=== PATIENT | female | born 1940 | race Caucasian/White ===

== ENCOUNTER 2020-09-30 09:13 | Outpatient (CLI) | payer MEDICARE, OTHER, SELFPAY ==
[2020-09-30 09:31] VITALS: BMI 29.2
--- NOTE | 2020-09-30 10:14 | NMCV_ITS ---
NM walt perf SPECT r/s* [id number] Patito Morfin Age: 80 Gender: F : 1940 Exam Date: 09/30/2020 11:06 Ordering Phys: Hemal Araya M.D ([email or web address]) Technologist: LAURENCE Shin Exam Location: [facility] Indications: SHORTNESS OF BREATH STRESS TEST Please see separate stress test report in [facility] for full findings IMAGE PROTOCOL Rest/Stress 1 Lexiscan Day Radiopharmaceutical Dose (mCi) Administration Site Administered by Rest: Tc-99m 10.8 IV LAURENCE Vega Sestamibi Stress:Tc-99m 32.9 IV LAURENCE Vega Sestamibi Rest: 30-Sep-2020 60 Discovery 630 Stress: 30-Sep-2020 30 Discovery 630 0.4mg Lexiscan. Images obtained in supine and prone position. SPECT RESULTS Technical Quality: Excellent Raw Data Analysis: Normal Image Corrections: No attenuation or motion correction applied Summed Stress Score: 0 Summed Rest Score: 0 Summed Difference Score: 0 PERFUSION FINDINGS There is a small in size mostly fixed, anterior wall perfusion defect. It likely represents attenuation artifact however small prior infarct can not be ruled out. No evidence of ischemia is seen FUNCTIONAL RESULTS (calculated via Gated SPECT) Stress Image LV EF (%): 81 Stress EDV (mL):84 TID: 0.92 Stress ESV (mL):16 FUNCTIONAL FINDINGS: There is normal left ventricular systolic function. IMPRESSIONS 1. Small sized perfusion abnormality is seen in the anterior wall. This is consistent with attenuation artifact vs low probability of small prior infarct. No evidence of ischemia is noted 2. LV systolic function is normal Hemal Araya MD (Electronically Signed) Final Date: 03 October 2020 09:03 S
--- NOTE | 2020-09-30 10:14 | ECG_ITS ---
[facility] Test Date: 2020-09-30 Pat Name: Patito Morfin Department: Room: Gender: Female Check Airman: : 1940 Requested By: Hemal Araya Order Number: [id number] Jeni MD: Hemal Araya M.D. Interpretive Statements NAME OF STUDY: LEXISCAN SESTAMIBI STRESS TEST INDICATION: [Shortness of Breath, ] Procedure: At the baseline, the blood pressure was 129/71 mmHg with a heart rate of 60 bpm. The electrocardiogram showed normal sinus rhythm, normal axis with normal ST and T's. The Lexiscan was infused over a period of 20 seconds. A total of 0.4 mg of Lexiscan was infused. The stress phase was continued for a total of 5 minutes. Heart rate was at the end of stress phase was 74 bpm and a blood pressure of 124/66 mmHg. The EKG at the peak infusion revealed since normal sinus rhythm with no significant ST-T wave changes. Sestamibi was injected 20 seconds after the Lexiscan infusion. Blood pressure at the end of recovery phase was 126/64 mmHg with a heart rate of 73 bpm. Conclusion: 1. Normal EKG response to Lexiscan infusion 2. No Lexiscan induced chest pain or cardiac arrhythmia. 3. Normal blood pressure and heart rate response. 4. Sestamibi/sestamibi perfusion scan pending; see separate report. Electronically Signed On 10-09-2020 13:36:04 CDT by Hemal Araya M.D. [id number]
[2020-09-30] MEDS: regadenoson 0.4 Mg/5 ml Syringe IVP (11:58)
[2020-09-30 12:00] VITALS: BP 126/64; PULSE 75
--- NOTE | 2020-09-30 14:15 | USCV_ITS ---
Patito Morfin Age: 80 Gender: F : 1940 Exam Date: 09/30/2020 09:58 Ordering Phys: Hemal Araya M.D ([email or web address]) Technologist: Exam Location: [facility] [place] Indication: CHEST PAIN BP: 120 / 70 HR: 64 Rhythm: Sinus Technical Quality: Adequate MEASUREMENTS (Male / Female) Normal Values 2D ECHO LV Diastolic Diameter PLAX 3.5 cm 4.2 - 5.9 / 3.9 - 5.3 cm LV Systolic Diameter PLAX 2.3 cm IVS Diastolic Thickness 0.8 cm 0.6 - 1.0 / 0.6 - 0.9 cm IVS Systolic Thickness 1.6 cm LVPW Diastolic Thickness 1.0 cm 0.6 - 1.0 / 0.6 - 0.9 cm LVPW Systolic Thickness 1.4 cm LVOT Diameter 2.0 cm LV Ejection Fraction 2D Teich 62.4 % LV Ejection Fraction MOD 2C 70.2 % LV Ejection Fraction 2C AL 70.2 % LA Diameter 2.9 cm LA Width 3.4 cm LA Height 4.8 cm RA Width 3.0 cm RA Height 3.8 cm DOPPLER AV Peak Velocity 158.0 cm/s LVOT Peak Velocity 90.0 cm/s AV Area Cont Eq vti 2.2 cm squared AV Area Cont Eq pk 1.8 cm squared MV Area PHT 5.0 cm squared Mitral E to A Ratio 1.3 MV E' Velocity 58.5 cm/s Mitral E to MV E' Ratio 10.6 Mitral E to LV E' Lateral Ratio 8.2 Mitral E to LV E' Septal Ratio 15.3 TR Peak Velocity 222.7 cm/s TR Peak Gradient 19.8 mmHg TV Peak E Velocity 73.0 cm/s Right Atrial Pressure 3.0 mmHg Pulmonary Artery Systolic Pressu 22.8 mmHg FINDINGS Left Ventricle Normal left ventricular size. LV systolic function is normal with EF of 55-60%. No regional wall motion abnormalities. Normal diastolic filling pattern. Right Ventricle The right ventricle is normal in size and function. Right Atrium The right atrium is normal in size. Left Atrium The left atrium is normal in size. Mitral Valve Structurally normal mitral valve without significant stenosis or prolapse. There is trace mitral regurgitation. Aortic Valve Structurally normal aortic valve without significant sclerosis or stenosis. There is trace aortic regurgitation. Tricuspid Valve Structurally normal tricuspid valve without significant stenosis or regurgitation. Insufficient TR jet to calculate RVSP Pulmonic Valve Structurally normal pulmonic valve without significant stenosis. There is trace pulmonic regurgitation. Pericardium Normal pericardium without effusion. Aorta Normal ascending aorta dimension. CONCLUSIONS LV systolic function is normal with EF of 55-60% Diastolic function is normal Trace mitral regurgitation. Trace pulmonic and aortic regurgitation Compared to prior echocardiogram from 2019, no significant changes are noted Hemal Araya MD (Electronically Signed) Final Date: 07 October 2020 11:53 S
== END 2020-09-30 09:14 | disposition home or self-care (01) ==
LOC: CDL 09:14
PROVIDERS: PCP Radiology Neuroradiology; Visit Provider Internal Medicine
DX: R06.02 Shortness of breath (principal); R07.9 Chest pain, unspecified
CPT/HCPCS: 78452; 93017; 93306; A9500; J2785

== ENCOUNTER → 2021-07-23 13:27 | Outpatient (BNVA) | payer MEDICARE, OTHER, SELFPAY | PROVIDERS: PCP Radiology Neuroradiology; Visit Provider Internal Medicine | DX: I10 Essential (primary) hypertension (principal); R06.00 Dyspnea, unspecified; E78.00 Pure hypercholesterolemia, unspecified | CPT/HCPCS: 99213; 99214 ==

== ENCOUNTER → 2021-12-24 14:55 | Outpatient (BNVA) | payer MEDICARE, OTHER, SELFPAY | PROVIDERS: PCP Radiology Neuroradiology; Visit Provider Orthopaedic Surgery | DX: M17.11 Unilateral primary osteoarthritis, right knee (principal) | CPT/HCPCS: 20610; 73560; 73565; 80503; 89050; 99203; J0702; J3490 ==

== ENCOUNTER → 2022-01-14 09:38 | Outpatient (BNVA) | payer MEDICARE, OTHER, SELFPAY | PROVIDERS: PCP Radiology Neuroradiology; Visit Provider Orthopaedic Surgery | DX: M17.11 Unilateral primary osteoarthritis, right knee (principal) | CPT/HCPCS: 99213 ==

== ENCOUNTER → 2022-03-24 13:14 | Outpatient (BNVA) | payer MEDICARE, OTHER, SELFPAY | PROVIDERS: PCP Radiology Neuroradiology; Visit Provider Orthopaedic Surgery | DX: M25.561 Pain in right knee (principal) | CPT/HCPCS: 99213 ==

== ENCOUNTER 2022-04-09 12:52 | Outpatient (CLI) | payer MEDICARE, OTHER, SELFPAY | END 2022-04-09 12:53 | disposition home or self-care (01) | LOC: RT 12:52 | PROVIDERS: PCP Nurse Practitioner Family; Visit Provider Internal Medicine | DX: R06.00 Dyspnea, unspecified (principal) | CPT/HCPCS: 94010; 94726; 94729 ==

== ENCOUNTER → 2022-04-23 15:21 | Outpatient (BNVA) | payer MEDICARE, OTHER, SELFPAY | PROVIDERS: PCP Nurse Practitioner Family; Visit Provider Internal Medicine | DX: I10 Essential (primary) hypertension (principal); E78.00 Pure hypercholesterolemia, unspecified; R06.00 Dyspnea, unspecified | CPT/HCPCS: 99214 ==

== ENCOUNTER 2022-05-11 10:35 | Outpatient (CLI) | payer MEDICARE, OTHER, SELFPAY ==
--- NOTE | 2022-05-11 11:00 | MR_ITS ---
WS: [id number] MRI RIGHT KNEE NONCONTRAST TECHNIQUE: Axial PD, coronal PD fat sat, coronal PD, sagittal PD, and sagittal PD fat-sat images obta ined. CLINICAL INFORMATION: M17.11 - Unilateral primary osteoarthritis, right knee COMPARISON: None. FINDINGS: Lobulated popliteal cyst measuring 1.4 x 1.4 x 5.1 cm AP by transverse by craniocaudal. Distal minnie ceps and patella tendons are intact. Hypertrophic patella. Prepatellar and infrapatellar soft tissue edema. Small suprapatellar effusion. Moderate chondromalacia patella. Medial and lateral patellar ret inaculum are intact.Normal ACL and PCL. Medial and lateral collateral ligaments are intact. Moderate chondromalacia involving the medial and lateral joint compartments. Horizontal tear involving the posterior horn medial meniscus extending to the articular surface. This extends the articular surface at the periphery and the meniscal root. Pe ripheral extrusion medial meniscus with advanced degenerative narrowing medial joint compartment with grade III chondromalacia. MR/MR knee RT wo con* [id number] IMPRESSION: 1. Lobulated popliteal cyst measuring 1.4 x 1.4 x 5.1 cm AP by transverse by c raniocaudal. 2. ACL and PCL are intact. 3. Advanced degenerative narrowing medial joint compartment with horizontal te ar posterior horn medial meniscus with chronic thinning and peripheral extrusio n. Grade III chondromalacia. 4. Small suprapatellar effusion. 5. Hypertrophic patella with grade III chondromalacia. Outbridge grading: grade III: partial-thickness cartilage loss with focal ulcer ation
== END 2022-05-11 10:36 | disposition home or self-care (01) ==
PROVIDERS: PCP Nurse Practitioner Family; Visit Provider Orthopaedic Surgery
DX: M17.11 Unilateral primary osteoarthritis, right knee (principal)
CPT/HCPCS: 73721

== ENCOUNTER → 2022-06-17 09:30 | Outpatient (BNVA) | payer MEDICARE, OTHER, SELFPAY | PROVIDERS: PCP Nurse Practitioner Family; Visit Provider Orthopaedic Surgery | DX: M17.11 Unilateral primary osteoarthritis, right knee (principal) | CPT/HCPCS: 99213 ==

== ENCOUNTER 2022-06-27 09:39 | Outpatient (CLI) | payer MEDICARE, OTHER, SELFPAY ==
--- NOTE | 2022-06-27 13:15 | CT_ITS ---
WS: [id number] CT chest wo con [id number] HISTORY: Lung Disease, short of breath with exertion. TECHNIQUE: Axial imaging performed through the thorax. Coronal and sagittal reformats are submitted. All CT scans at [facility] use at least one of these dose optimization techniques: automated exposure control; mA and/or kV adjustment per patient size (includes targeted exams where dose is mat ched to clinical indication); or iterative reconstruction. CONTRAST: None DLP: 185.71 mGy.cm COMPARISON: CT neck 10/24/2010 Lungs and central airway: Mild pulmonary hyperexpansion. Hazy groundglass attenuation at the lung bas es bilaterally and also extension into the RIGHT middle lobe and minimally into the lingula. There is no associated mass. No nodule. Pleura: Normal. No pleural effusion. Heart and pericardium: Normal size heart with no pericardial effusion. Mediastinum and bhakti: No adenopathy identified. Hilar regions are not well visualized without IV cont rast. Cannot exclude hilar lymphadenopathy. Vessels: Mild atherosclerosis aorta. No aneurysm. Normal size pulmonary artery. Chest wall and lower neck: Enlarged multinodular thyroid. RIGHT lower lobe thyroid nodule measures 2. 5 x 2.9 cm. The LEFT lobe is enlarged also extending substernal. There is a midline thyroid nodule me asuring 2.3 x 3.1 cm which contacts the trachea. Upper abdomen: Small hiatal hernia. 10 mm low-attenuation mass in the LEFT lobe of the liver is proba john a cyst. Osseous structures: Moderate thoracic spondylosis. CT/CT chest wo con [id number] IMPRESSION: 1. Mild bilateral lower lobe groundglass attenuation with a smaller amount of groundglass in the lingula and RIGHT middle lobe. Differential includes edema, small vessel disease and hypersensitivity pneumonia. 2. No adenopathy. 3. Multinodular goiter extends substernal. Similar findings were described on neck CT of 10/24/2010. 4. No adenopathy identified.
== END 2022-06-27 09:40 | disposition home or self-care (01) ==
PROVIDERS: PCP Nurse Practitioner Family; Visit Provider Internal Medicine Pulmonary Disease
DX: J98.4 Other disorders of lung (principal); M25.641 Stiffness of right hand, not elsewhere classified; M25.642 Stiffness of left hand, not elsewhere classified; E04.2 Nontoxic multinodular goiter
CPT/HCPCS: 71250

== ENCOUNTER 2022-07-22 09:41 | Outpatient (CLI) | payer MEDICARE, OTHER, SELFPAY | END 2022-07-22 09:42 | disposition home or self-care (01) | LOC: RT 09:43 | PROVIDERS: PCP Nurse Practitioner Family; Visit Provider Internal Medicine | DX: R06.00 Dyspnea, unspecified (principal) | CPT/HCPCS: 36415; 85651; 86038; 86140; 86200; 94618; 99204 ==

== ENCOUNTER → 2022-09-24 08:11 | Outpatient (BNVA) | payer MEDICARE, OTHER, SELFPAY | PROVIDERS: PCP Nurse Practitioner Family; Visit Provider Internal Medicine Pulmonary Disease | DX: J98.4 Other disorders of lung (principal); R06.00 Dyspnea, unspecified; M25.641 Stiffness of right hand, not elsewhere classified; M25.642 Stiffness of left hand, not elsewhere classified; G47.33 Obstructive sleep apnea (adult) (pediatric); E04.2 Nontoxic multinodular goiter | CPT/HCPCS: 36415; 86331; 86606; 86609; 99214 ==

== ENCOUNTER → 2022-12-22 13:23 | Outpatient (BNVA) | payer MEDICARE, OTHER, SELFPAY | PROVIDERS: PCP Nurse Practitioner Family; Referring Provider Nurse Practitioner Family; Visit Provider Specialist | DX: F03.90 Unspecified dementia, unspecified severity, without behavioral disturbance, psychotic disturbance, mood disturbance, and anxiety (principal); G31.84 Mild cognitive impairment of uncertain or unknown etiology | CPT/HCPCS: 99205 ==

== ENCOUNTER → 2023-02-22 14:57 | Outpatient (BNVA) | payer MEDICARE, OTHER, SELFPAY | PROVIDERS: PCP Nurse Practitioner Family; Visit Provider Specialist | DX: M25.521 Pain in right elbow (principal); M79.641 Pain in right hand; M19.041 Primary osteoarthritis, right hand | CPT/HCPCS: 73080; 73120; 99204 ==

== ENCOUNTER → 2023-04-06 11:57 | Outpatient (BNVA) | payer MEDICARE, OTHER, SELFPAY | PROVIDERS: PCP Nurse Practitioner Family; Visit Provider Specialist | DX: G56.03 Carpal tunnel syndrome, bilateral upper limbs (principal); M25.641 Stiffness of right hand, not elsewhere classified; M25.642 Stiffness of left hand, not elsewhere classified; G31.84 Mild cognitive impairment of uncertain or unknown etiology | CPT/HCPCS: 99214 ==

== ENCOUNTER → 2023-04-08 11:48 | Outpatient (BNVA) | payer MEDICARE, OTHER, SELFPAY | PROVIDERS: PCP Nurse Practitioner Family; Visit Provider Specialist | DX: G56.03 Carpal tunnel syndrome, bilateral upper limbs (principal) | CPT/HCPCS: 95911 ==

== ENCOUNTER → 2023-04-22 12:40 | Outpatient (BNVA) | payer MEDICARE, OTHER, SELFPAY | PROVIDERS: PCP Nurse Practitioner Family; Visit Provider Internal Medicine | DX: I10 Essential (primary) hypertension (principal); R01.1 Cardiac murmur, unspecified; E78.00 Pure hypercholesterolemia, unspecified; R06.00 Dyspnea, unspecified | CPT/HCPCS: 99214 ==

== ENCOUNTER → 2023-04-28 16:33 | Outpatient (BNVA) | payer MEDICARE, OTHER, SELFPAY | PROVIDERS: PCP Nurse Practitioner Family; Visit Provider Specialist | DX: G56.03 Carpal tunnel syndrome, bilateral upper limbs (principal); Z01.818 Encounter for other preprocedural examination | CPT/HCPCS: 36415; 80053; 81001; 85025; 99214 ==

== ENCOUNTER 2023-04-29 08:26 | Outpatient (CLI) | payer MEDICARE, OTHER, SELFPAY ==
--- NOTE | 2023-04-29 08:45 | USCV_ITS ---
Patito Morfin Age: 82 Gender: F : 1940 Exam Date: 04/29/2023 08:49 Ordering Phys: Hemal Araya M.D ([email or web address]) Technologist: Kayla Arango Exam Location: [facility] [place] Indication: murmur BP: 138 / 70 HR: 0 Rhythm: Sinus Technical Quality: Good MEASUREMENTS (Male / Female) Normal Values 2D ECHO LV Diastolic Diameter PLAX 5.1 cm 4.2 - 5.9 / 3.9 - 5.3 cm IVS Diastolic Thickness 1.0 cm 0.6 - 1.0 / 0.6 - 0.9 cm IVS Systolic Thickness 1.7 cm LVPW Diastolic Thickness 0.5 cm 0.6 - 1.0 / 0.6 - 0.9 cm LVPW Systolic Thickness 0.8 cm LVOT Diameter 2.0 cm LV Ejection Fraction 2D Teich 54.7 % LV Ejection Fraction MOD 2C 58.1 % Aorta at Sinotubular Diameter 3.0 cm IVC Diameter 1.5 cm M-MODE LA Ao Ratio MM 0.8 AV Cusp Separation MM 1.4 cm DOPPLER AV Peak Velocity 194.0 cm/s LVOT Peak Velocity 127.0 cm/s AV Area Cont Eq vti 2.1 cm squared AV Area Cont Eq pk 2.0 cm squared MV Area PHT 4.2 cm squared Mitral E to A Ratio 1.0 TV Peak Velocity 244.0 cm/s TR Peak Velocity 254.0 cm/s TR Peak Gradient 25.8 mmHg PV Peak Velocity 117.0 cm/s FINDINGS Left Ventricle Ventricle is normal size. LV systolic function is normal with EF of 55 to 60%. No regional wall motion abnormalities are seen. Right Ventricle Normal in size and function Right Atrium Normal in size Left Atrium Normal in size Mitral Valve Mild mitral annular calcification seen. Trace mitral regurgitation. Aortic Valve Structurally normal aortic valve. No significant stenosis or regurgitation seen. Tricuspid Valve Mild tricuspid regurgitation. Insufficient TR jet to calculate RVSP. Pulmonic Valve Mild pulmonic regurgitation. Pericardium Normal Aorta Normal in size IVC Appears to be normal CONCLUSIONS LV systolic function is normal with EF of 55 to 60%. Trace mitral regurgitation. Mild tricuspid regurgitation Mild pulmonic regurgitation Compared to prior echcoardiogram from 2020, no significant changes are seen Hemal Araya MD (Electronically Signed) Final Date: 08 May 2023 11:30 S
== END 2023-04-29 08:27 | disposition home or self-care (01) ==
LOC: RAD 08:27
PROVIDERS: PCP Nurse Practitioner Family; Visit Provider Internal Medicine
DX: I08.8 Other rheumatic multiple valve diseases (principal)
CPT/HCPCS: 93306

== ENCOUNTER → 2023-05-04 12:53 | Outpatient (BNVA) | payer MEDICARE, OTHER, SELFPAY | PROVIDERS: PCP Nurse Practitioner Family; Visit Provider Internal Medicine Pulmonary Disease | DX: R06.00 Dyspnea, unspecified (principal); M25.641 Stiffness of right hand, not elsewhere classified; M25.642 Stiffness of left hand, not elsewhere classified; J98.4 Other disorders of lung; E04.2 Nontoxic multinodular goiter | CPT/HCPCS: 99214 ==

== ENCOUNTER → 2023-05-11 14:33 | Outpatient (BNVA) | payer MEDICARE, OTHER, SELFPAY | PROVIDERS: PCP Nurse Practitioner Family; Visit Provider Family Medicine | DX: Z01.818 Encounter for other preprocedural examination (principal) | CPT/HCPCS: 81003 ==

== ENCOUNTER 2023-06-03 05:26 | Day surgery (SDC) | payer MEDICARE, OTHER, SELFPAY ==
[2023-06-03] VITALS (10 sets, daily range): BP systolic 112–148; BP diastolic 52–71; PULSE 54–64; RESP 12–16; TEMP 36.2–36.4; O2SAT 92–100; BMI 27.6
[2023-06-03] MEDS: sodium chloride 0.9% 1,000 ML 30 ML IV (06:28)
[2023-06-03] MEDS: acetaminophen 1,000 MG/100 ML PIGGYBACK 400 MG IV (06:29)
[2023-06-03] MEDS: CELEcoxib 200 mg Capsule 400 MG PO (06:29)
[2023-06-03] MEDS: gabapentin 300 mg Capsule PO (06:29)
--- NOTE | 2023-06-03 06:45 | ANES.PREANE2 ---
Pre-Anesthetic Assessment Height/Weight: Height 1.62 m Weight 72.575 kg Temp Pulse Resp BP Pulse Ox O2 Del Method 97.4 F L 54 L 16 123/53 96 Room Air 06/03/23 06:08 06/03/23 06:08 06/03/23 06:08 06/03/23 06:08 06/03/23 06:08 06/03/23 06:09 Operation Date: 06/03/23 07:00 Proposed Procedures p Carpal Tunnel Release(Right) - Agnieszka Rai MD Familial anesthetic complications: None Was Beta Niraj taken within 24 hours: N/A Was Clonidine taken within 24 hours: N/A Last intake: Intake Last Liquid Date 06/02/23 Last Liquid Time 19:00 Last Solid Date 06/02/23 Last Solid Time 19:00 Social No alcohol and No tobacco Exam alert, oriented x 3, clear to auscultation bilaterally and regular rate & rhythm Airway Mallampati: Class II Dentition: false Pulmonary Exertional Dyspnea and Sleep Apnea CV/HEM Hypertension restrictive lung disease Anesthetic Plan ASA status: 3 Anesthesia: General Risk of > 500 ml blood loss (7ml/kg in children): No Medications/Allergies Home Medications Medication Instructions Recorded Confirmed Last Taken Type calcium citrate 200 mg (950 mg) 200 mg PO DAILY 08/28/20 06/02/23 06/02/23 History tablet clopidogrel 75 mg tablet (Plavix) 75 mg PO DAILY 08/28/20 06/02/23 05/28/23 History multivitamin 1 tab PO DAILY 08/28/20 06/02/23 06/02/23 History valsartan 160 1 tab PO DAILY 08/28/20 06/02/23 06/01/23 History mg-hydrochlorothiazide 25 mg tablet (Diovan HCT) amlodipine 5 mg tablet 5 mg PO DAILY #90 tabs 08/12/21 06/03/23 06/03/23 Rx celecoxib 200 mg capsule (Celebrex) 200 mg PO DAILY 06/24/22 06/02/23 06/02/23 History cilostazol 50 mg tablet 50 mg PO BID 06/24/22 06/02/23 Unknown History hydrocodone 5 mg-acetaminophen 325 1 tab PO Q4H PRN Pain 04/22/23 06/02/23 Unknown History mg tablet trazodone 50 mg tablet 100 mg PO DAILY 05/11/23 06/02/23 06/02/23 History galantamine 4 mg tablet 4 mg PO BID #60 tabs 05/26/23 06/02/23 Unknown Rx Allergies Allergy/AdvReac Type Severity Reaction Status Date / Time prochlorperazine Allergy Unknown Unknown Verified 06/02/23 12:11 [From Compazine] Current Medications Generic Name Dose Route Start Last Admin Trade Name Freq PRN Reason Stop Dose Admin Sodium Chloride 1,000 mls @ 30 mls/hr 06/03/23 06:00 06/03/23 06:28 Sodium Chloride 0.9% IV 06/04/23 05:59 30 mls/hr .Q24H SAHARA Administration PFSH Anesthesia Medical History Hypercholesterolemia Hypertension Surgical History History of appendectomy H/O total hysterectomy Family History Other Hypertension Social History Smoking and tobacco/nicotine status: never used tobacco/nicotine Alcohol intake: never Data Anesthesia Cardiac Studies: Echocardiogram 04/29/23 Echocardiogram Ultrasound 09/30/20 Sestamibi Stress Test (Cardiology) 09/30/20
--- NOTE | 2023-06-03 06:55 | P.HPUD_ITS ---
Surgery/Procedure H&P Update DATE OF PROCEDURE: June 03, 2023 DATE H&P PERFORMED: 05/11/23 H&P UPDATE INFORMATION: I have reviewed H&P completed within last 30 days, I have examined patient prior to procedure, No changes to prior documentation and H&P is in [facility] EMR on date indicated PLANNED PROCEDURE: Operation Date: 06/03/23 07:00 Proposed Procedures p Carpal Tunnel Release(Right) - Agnieszka Rai MD Related Problem List Diagnoses (1) Carpal tunnel syndrome on right:
[2023-06-03] MEDS: ceFAZolin 2,000 MG in sodium chloride 0.9% (plus) 50 ML 100 MG IV (07:10)
[2023-06-03] MEDS: BUPivacaine 0.5% INJ 30 mL XX (07:36)
--- NOTE | 2023-06-03 08:00 | PM.OP ---
Operative Report Date of procedure: June 03, 2023 Pre-op diagnosis: Right carpal tunnel syndrome Post-op diagnosis: Right carpal tunnel syndrome Post-op findings: Significant compression across carpal canal with purplish discoloration of the median nerve Procedure done: Right carpal tunnel release Specimens removed/disposition: None Surgeon: Agnieszka Ria MD Pharmaceutical Service Representative: None Anesthesia: General (Per LMA, ASA 3) Estimated blood loss (mL): 5 Tourniquet time (min): 19 (At 250 mmHg) IV fluids (mL): 5 Urine output (mL): 0 (No Sahni) Complications: None Findings: Consistent with significant carpal tunnel syndrome Condition: stable Disposition: PACU Brief History: This 82-year-old woman presented to the office complaining of symptoms consistent with carpal tunnel syndrome. She had a nerve conduction study in March which demonstrated severe bilateral carpal tunnel syndrome. Risks and complications of surgery were discussed with the patient in the office. Consents were signed and questions were answered. The patient wished to proceed with right carpal tunnel syndrome followed by left after she recovers. Procedure: The patient was brought to the operating theater. She had a general anesthesia per LMA, ASA 3. The tourniquet was elevated to 250 mmHg for a total tourniquet time of 19 minutes. The patient was also given Ancef 2 g preoperatively. The arm was then prepped and draped with DuraPrep in usual fashion with the arm draped free. A surgical pause was performed. At the time, the surgical pause, we confirmed the site and side of surgery. We also confirmed the patient's identity, appropriate and timely administration of preoperative antibiotics and preoperative surgical markings. An incision was then made along the thenar crease. The incision crossed the wrist joint in a curvilinear fashion. Dissection continued through skin and soft tissues using a scalpel. The palmaris longus was identified along with the transverse carpal ligament. Each of these was released carefully to avoid injury to the median nerve. We were able to dissect gently into the carpal canal which was noted to be quite tight with significant compression across the median nerve. The nerve was visualized and was an hourglass shape with purplish discoloration. The canal was subsequently palpated to assure there was no bony encroachment upon the canal. There was a quite thickened fibrous tissue within the canal, and this was opened longitudinally as well. The canal was then palpated distally and proximally to assure that my small finger was passed easily without impingement. Finding this to be so, attention was directed to closure. The wound was irrigated with ropivacaine plain. It was then closed with 3 oh nylon in an interrupted mattress fashion. Sterile dressing was then placed consisting of Dermabond, OpSite, fluffed fluffs, sterile soft roll, and an Andrez wrap. The tourniquet was released after 19 minutes. There were no complications. There were no specimens. The procedure was well tolerated. Plan is the patient will be discharged home. Related Problem List Diagnoses (1) Carpal tunnel syndrome on right:
--- NOTE | 2023-06-03 09:10 | ANE.PACU2 ---
Inpatient post-anesthesia follow up: Airway intact: Yes Vital signs: Temperature 97.5 F Pulse Rate 64 Respiratory Rate 16 Blood Pressure 112/52 Pulse Oximetry 93 Oxygen Delivery Me thod Room Air Oxygen Flow Rate 6 Fraction of Inspir ed Oxygen Hydration adequate: Yes Nausea and vomiting: No Pain level: 1 Mental status: Baseline
== END 2023-06-03 09:10 | disposition home or self-care (01) ==
PROVIDERS: PCP Nurse Practitioner Family; Visit Provider Specialist
PROC: (CPT 64721; principal; 2023-06-03 07:00)
DX: G56.01 Carpal tunnel syndrome, right upper limb (principal); G47.30 Sleep apnea, unspecified; I10 Essential (primary) hypertension
CPT/HCPCS: 64721; J0131; J0690; J2371; J2405; J2704; J3010; J3490; J7030

== ENCOUNTER → 2023-06-14 07:50 | Outpatient (BNVA) | payer MEDICARE, OTHER, SELFPAY | PROVIDERS: PCP Nurse Practitioner Family; Visit Provider Nurse Practitioner | DX: Z98.890 Other specified postprocedural states (principal); G56.01 Carpal tunnel syndrome, right upper limb; E04.2 Nontoxic multinodular goiter | CPT/HCPCS: 99024; 99204 ==

== ENCOUNTER → 2023-07-05 14:18 | Outpatient (BNVA) | payer MEDICARE, OTHER, SELFPAY | PROVIDERS: PCP Nurse Practitioner Family; Visit Provider Specialist | DX: G56.03 Carpal tunnel syndrome, bilateral upper limbs; G56.02 Carpal tunnel syndrome, left upper limb | CPT/HCPCS: 36415; 73080; 73130; 80053; 81001; 85025; 99214 ==

== ENCOUNTER 2023-07-29 05:16 | Day surgery (SDC) | payer MEDICARE, OTHER, SELFPAY ==
[2023-07-29] VITALS (10 sets, daily range): BP systolic 113–126; BP diastolic 57–64; PULSE 60–75; RESP 12–20; TEMP 36.2–36.8; O2SAT 92–100
[2023-07-29] MEDS: sodium chloride 0.9% 1,000 ML 30 ML IV (06:13)
[2023-07-29] MEDS: acetaminophen 1,000 MG/100 ML PIGGYBACK 400 MG IV (06:15)
[2023-07-29] MEDS: CELEcoxib 200 mg Capsule 400 MG PO (06:16)
--- NOTE | 2023-07-29 06:37 | ANES.PREANE2 ---
Pre-Anesthetic Assessment Height/Weight: Height 1.6 m Weight 72.575 kg Temp Pulse Resp BP Pulse Ox O2 Del Method 97.2 F L 60 16 117/60 96 Room Air 07/29/23 06:01 07/29/23 06:01 07/29/23 06:01 07/29/23 06:01 07/29/23 06:01 07/29/23 06:01 Operation Date: 07/29/23 07:00 Proposed Procedures p Carpal Tunnel Release(Left) - Agnieszka Rai MD Familial anesthetic complications: none Was Beta Niraj taken within 24 hours: N/A Was Clonidine taken within 24 hours: N/A Last intake: Intake Last Liquid Date 07/28/23 Last Liquid Time 20:00 Last Solid Date 07/29/23 Last Solid Time 18:30 Social No alcohol and No tobacco Exam alert, oriented x 3, clear to auscultation bilaterally and regular rate & rhythm Airway Submandibular: within normal limits Cervical ROM: within normal limits Mallampati: Class II Dentition: false Pulmonary Sleep Apnea CV/HEM Hypertension Musc/skel Lower Back Pain and Osteoarthritis/DJD Neuropsych Neuropathy Anesthetic Plan ASA status: 3 Anesthesia: Choice Medications/Allergies Home Medications Medication Instructions Recorded Confirmed Last Taken Type calcium citrate 200 mg (950 mg) 200 mg PO DAILY 08/28/20 07/29/23 07/28/23 History tablet clopidogrel 75 mg tablet (Plavix) 75 mg PO DAILY 08/28/20 07/28/23 07/14/23 History multivitamin 1 tab PO DAILY 08/28/20 07/29/23 07/28/23 History valsartan 160 1 tab PO DAILY 08/28/20 07/29/23 07/28/23 History mg-hydrochlorothiazide 25 mg tablet (Diovan HCT) amlodipine 5 mg tablet 5 mg PO DAILY #90 tabs 08/12/21 07/29/23 07/29/23 Rx celecoxib 200 mg capsule (Celebrex) 200 mg PO DAILY 06/24/22 07/29/23 07/28/23 History cilostazol 50 mg tablet 50 mg PO BID 06/24/22 07/29/23 07/28/23 History hydrocodone 5 mg-acetaminophen 325 1 tab PO Q4H PRN Pain 04/22/23 07/29/23 07/28/23 History mg tablet trazodone 50 mg tablet 100 mg PO DAILY 05/11/23 07/29/23 07/28/23 History galantamine 4 mg tablet 4 mg PO BID #60 tabs 05/26/23 07/29/23 07/28/23 Rx Allergies Allergy/AdvReac Type Severity Reaction Status Date / Time prochlorperazine Allergy Unknown Unknown Verified 07/28/23 08:57 [From Compazine] Current Medications Generic Name Dose Route Start Last Admin Trade Name Miranda PRN Reason Stop Dose Admin Sodium Chloride 1,000 mls @ 30 mls/hr 07/29/23 06:00 07/29/23 06:13 Sodium Chloride 0.9% IV 07/30/23 05:59 30 mls/hr .Q24H SAHARA Administration PFSH Anesthesia Medical History Dementia History of deviated nasal septum Hypercholesterolemia Hypertension Surgical History History of back surgery [facility] 2004, March 31, 2012, July Hx of rotator cuff surgery S/P carpal tunnel release Surgery: Right carpal tunnel release. DOS: 06-03-2023 Surgeon: Dr. Agnieszka Rai MD. History of appendectomy H/O total hysterectomy Family History Mother Congestive heart failure (CHF) Father Aneurysm Brother Aneurysm Brother No problems noted. Sister Atrial fibrillation Sister Stroke Other Hypertension Social History Smoking and tobacco/nicotine status: never used tobacco/nicotine Alcohol intake: never Data Anesthesia Cardiac Studies: Echocardiogram 04/29/23 Echocardiogram Ultrasound 09/30/20 Sestamibi Stress Test (Cardiology) 09/30/20
--- NOTE | 2023-07-29 06:59 | W.PM.OPSUD ---
Surgery/Procedure H&P Update DATE OF PROCEDURE: July 29, 2023 DATE H&P PERFORMED: 07/05/23 H&P UPDATE INFORMATION: I have reviewed H&P completed within last 30 days, I have examined patient prior to procedure, No changes to prior documentation and H&P is in [facility] EMR on date indicated PLANNED PROCEDURE: Operation Date: 07/29/23 07:00 Proposed Procedures p Carpal Tunnel Release(Left) - Agnieszka Rai MD Related Problem List Diagnoses (1) Carpal tunnel syndrome, left:
[2023-07-29] MEDS: ceFAZolin 2,000 MG in sodium chloride 0.9% (plus) 50 ML 100 MG IV (07:07)
[2023-07-29] MEDS: BUPivacaine 0.5% INJ 30 mL XX (07:33)
--- NOTE | 2023-07-29 08:02 | PM.OP ---
Operative Report Date of procedure: July 29, 2023 Pre-op diagnosis: Left carpal tunnel syndrome Post-op diagnosis: Left carpal tunnel syndrome Post-op findings: Significant compression across carpal canal with purplish discoloration of the median nerve with hourglass deformity Procedure done: Left carpal tunnel release Specimens removed/disposition: None Surgeon: Agnieszka Rai MD Public Speaking Coach: None Anesthesia: General (Per LMA, ASA 3) Estimated blood loss (mL): 2 Tourniquet time (min): 17 (At 250 mmHg) IV fluids (mL): 800 Urine output (mL): 0 (No Sahni) Complications: None Findings: Severe compression across the median nerve with purplish discoloration consistent with carpal tunnel syndrome Condition: stable Disposition: PACU (Then return to same-day surgery for discharge to home) Brief History: This is a 82 year old established woman who presents today for left carpal tunnel release. She has findings consistent with carpal tunnel syndrome, and left carpal tunnel. She was seen in the office, and her symptoms are consistent with carpal tunnel. Nerve conduction demonstrated severe carpal tunnel syndrome. Patient wished to proceed with surgery, risks and complications were discussed, and consents were signed. Procedure: The patient was brought to the operating theater. She had a general anesthesia per LMA, ASA 3. The tourniquet was elevated to 250 mmHg for a total tourniquet time of 17 minutes. The patient was also given Ancef 2 g preoperatively. The arm was then prepped and draped with DuraPrep in usual fashion with the arm draped free. A surgical pause was performed. At the time, the surgical pause, we confirmed the site and side of surgery. We also confirmed the patient's identity, appropriate and timely administration of preoperative antibiotics and preoperative surgical markings. An incision was then made along the thenar crease. The incision crossed the wrist joint in a curvilinear fashion. Dissection continued through skin and soft tissues using a scalpel. The palmaris longus was identified along with the transverse carpal ligament. Each of these was released carefully to avoid injury to the median nerve. We were able to dissect gently into the carpal canal which was noted to be quite tight with significant compression across the median nerve. The nerve was visualized and was an hourglass shape with purplish discoloration. The canal was subsequently palpated to assure there was no bony encroachment upon the canal. The canal was then palpated distally and proximally to assure that my small finger was passed easily without impingement. Finding this to be so, attention was directed to closure. The wound was irrigated with ropivacaine plain. It was then closed with 3 oh nylon in an interrupted mattress fashion. Sterile dressing was then placed consisting of Dermabond, OpSite, fluffed fluffs, sterile soft roll, and an Andrez wrap. The tourniquet was released after 17 minutes. There were no complications. There were no specimens. The procedure was well tolerated. Plan is the patient will be discharged home. Related Problem List Diagnoses (1) Carpal tunnel syndrome, left:
--- NOTE | 2023-07-29 13:47 | ANE.PACU2 ---
Inpatient post-anesthesia follow up: Airway intact: Yes Vital signs: Temperature 98.2 F Pulse Rate 67 Respiratory Rate 18 Blood Pressure 124/64 Pulse Oximetry 94 Oxygen Delivery Me thod Room Air Oxygen Flow Rate 5 Fraction of Inspir ed Oxygen Hydration adequate: Yes Nausea and vomiting: No Pain level: 2 Mental status: Baseline
== END 2023-07-29 08:56 | disposition home or self-care (01) ==
PROVIDERS: PCP Nurse Practitioner Family; Visit Provider Specialist
PROC: (CPT 64721; principal; 2023-07-29 07:00)
DX: G56.02 Carpal tunnel syndrome, left upper limb (principal)
CPT/HCPCS: 64721; J0131; J0690; J1100; J2405; J2704; J3010; J3490; J7030

== ENCOUNTER → 2023-08-11 08:43 | Outpatient (BNVA) | payer MEDICARE, OTHER, SELFPAY | PROVIDERS: PCP Nurse Practitioner Family; Visit Provider Specialist | DX: Z98.890 Other specified postprocedural states (principal) | CPT/HCPCS: 99024 ==

== ENCOUNTER → 2023-08-31 07:43 | Outpatient (BNVA) | payer MEDICARE, OTHER, SELFPAY | PROVIDERS: PCP Nurse Practitioner Family; Visit Provider Specialist | DX: M25.641 Stiffness of right hand, not elsewhere classified (principal); M25.642 Stiffness of left hand, not elsewhere classified; G56.03 Carpal tunnel syndrome, bilateral upper limbs; G31.84 Mild cognitive impairment of uncertain or unknown etiology; M96.1 Postlaminectomy syndrome, not elsewhere classified; M48.062 Spinal stenosis, lumbar region with neurogenic claudication | CPT/HCPCS: 99214 ==

== ENCOUNTER 2023-11-24 14:05 | Oncology outpatient (recurring) (ONCR) | payer MEDICARE, OTHER, SELFPAY ==
[2023-11-24 16:12] LABS: Basophils % 0.4 %; Eosinophils # 0.3 10^3/uL (0.0-0.8); Eosinophils % 3.3 %; Hematocrit 30.4 % (36-47); Lymphocytes # 1.5 10^3/uL (0.8-4.8); Lymphocytes % 20.5 %; Mean Corpuscular HGB Conc 33.2 g/dL (30-55); Mean Corpuscular Hemoglobin 32.8 pg (27-33); Mean Corpuscular Volume 98.7 fl (85-98); Mean Platelet Volume 11.6 fL (7.4-10.4); Monocytes # 0.7 10^3/uL (0.2-0.9); Monocytes % 9.3 %; Neutrophils # 4.96 10^3/uL (1.8-7.7); Neutrophils % 66.1 %; Nucleated Red Blood Cells % 0 %; Platelet Count 489 10^3/cmm (157-399); Red Blood Count 3.08 10^6/uL (3.85-5.65); Red Cell Distribution Width 19.3 % (12.1-15.1); Reticulocyte % 1.1 % (0.5-2.0); White Blood Count 7.51 10^3/uL (3.29-11.43)
[2023-11-24 16:39] LABS: LAB Peripheral Smear Sent for Review
[2023-11-24 16:47] LABS: Alanine Aminotransferase 10 U/L (0-33); Albumin Level 4.4 g/dL (3.5-5.2); Alkaline Phosphatase 95 U/L (35-105); Anion Gap 13.6 (5-19); Aspartate Amino Transferase 15 U/L (0-32); Blood Urea Nitrogen 18 mg/dL (8-23); Calcium 9.2 mg/dL (8.5-10.5); Carbon Dioxide 30 mmol/L (22-29); Chloride 103 mmol/L (98-107); Ferritin 657 ng/mL (15-150); Globulin 2.2 g/dL (1.3-4.6); Glucose 95 mg/dL (65-115); Iron 65 ug/dL (37-145); Lactate Dehydrogenase 128 U/L (135-214); Osmolality Calculated 298 mOsm/kg (285-295); Percent Saturation 31.4 % (20-50); Potassium 3.6 mmol/L (3.5-5.1); Sodium 143 mmol/L (136-145); Total Bilirubin 1.2 mg/dL (0.15-1.2); Total Iron Binding Capacity 207 mcg/dl; Total Protein 6.6 g/dL (6.6-8.7); Unsaturated Iron Binding 142 ug/dL (112-347)
[2023-11-24 17:02] LABS: Vitamin B12 1219 pg/mL (232-1245)
[2023-11-24 18:17] LABS: Folate Level > 20.0 ng/mL (4.8-37.3)
[2023-11-27 08:53] LABS: Methylmalonic Acid 179 nmol/L (85-423)
== END 2023-12-13 23:59 | disposition home or self-care (01) ==
PROVIDERS: PCP Nurse Practitioner Family; Visit Provider Internal Medicine Medical Oncology
DX: D64.9 Anemia, unspecified (principal); Z98.890 Other specified postprocedural states; E80.6 Other disorders of bilirubin metabolism
CPT/HCPCS: 36415; 80053; 82607; 82728; 82746; 83010; 83540; 83550; 83615; 83921; 85025; 85045; 99204

== ENCOUNTER 2024-03-01 10:45 | Oncology outpatient (recurring) (ONCR) | payer MEDICARE, OTHER, SELFPAY ==
[2024-03-01 11:17] LABS: Basophils % 0.4 %; Eosinophils # 0.3 10^3/uL (0.0-0.8); Eosinophils % 5.8 %; Hematocrit 31.2 % (36-47); Lymphocytes # 1.5 10^3/uL (0.8-4.8); Lymphocytes % 28.4 %; Mean Corpuscular HGB Conc 32.7 g/dL (30-55); Mean Corpuscular Hemoglobin 32.5 pg (27-33); Mean Corpuscular Volume 99.4 fl (85-98); Mean Platelet Volume 11.4 fL (7.4-10.4); Monocytes # 0.6 10^3/uL (0.2-0.9); Monocytes % 10.6 %; Neutrophils # 2.94 10^3/uL (1.8-7.7); Neutrophils % 54.6 %; Nucleated Red Blood Cells % 0 %; Platelet Count 483 10^3/cmm (157-399); Red Blood Count 3.14 10^6/uL (3.85-5.65); Red Cell Distribution Width 18.6 % (12.1-15.1); White Blood Count 5.38 10^3/uL (3.29-11.43)
[2024-03-01 11:36] LABS: Alanine Aminotransferase 9 U/L (0-33); Albumin Level 4.5 g/dL (3.5-5.2); Alkaline Phosphatase 84 U/L (35-105); Anion Gap 12.2 (5-19); Aspartate Amino Transferase 15 U/L (0-32); Blood Urea Nitrogen 15 mg/dL (8-23); Calcium 9.8 mg/dL (8.5-10.5); Carbon Dioxide 30 mmol/L (22-29); Chloride 102 mmol/L (98-107); Creatinine Clr Calc Pharmacy 50.2035; Ferritin 695 ng/mL (15-150); Globulin 2.3 g/dL (1.3-4.6); Glucose 101 mg/dL (65-115); Iron 88 ug/dL (37-145); Lactate Dehydrogenase 138 U/L (135-214); Osmolality Calculated 291 mOsm/kg (285-295); Percent Saturation 34.7 % (20-50); Potassium 4.2 mmol/L (3.5-5.1); Sodium 140 mmol/L (136-145); Total Iron Binding Capacity 253 mcg/dl; Total Protein 6.8 g/dL (6.6-8.7); Unsaturated Iron Binding 165 ug/dL (112-347)
[2024-03-01 14:38] LABS: Erythrocyte Sedimentation Rate 3 mm/hr (0-15)
[2024-03-02 07:42] LABS: Beta-2-Microglobulin 2.77 mg/L (< OR = 2.51)
[2024-03-06 09:24] LABS: CALR Exon 9 Mutation NOT DETECTED (NOT DETECTED); JAK2 Exon 12 Mutation NOT DETECTED (NOT DETECTED); JAK2 V617 Mutation NOT DETECTED (NOT DETECTED); MPL Exon 10 Mutation NOT DETECTED (NOT DETECTED); Specimen Source blood
== END 2024-03-14 23:59 | disposition home or self-care (01) ==
PROVIDERS: Internal Medicine; PCP Nurse Practitioner Family; Visit Provider Internal Medicine Medical Oncology
DX: D64.9 Anemia, unspecified (principal); Z98.890 Other specified postprocedural states; E80.6 Other disorders of bilirubin metabolism
CPT/HCPCS: 36415; 80053; 81219; 81270; 81279; 81339; 82232; 82248; 82728; 83010; 83540; 83550; 83615; 85025; 85045; 85651; 86140; 99213

== ENCOUNTER → 2024-04-20 13:17 | Outpatient (BNVA) | payer MEDICARE, OTHER, SELFPAY | PROVIDERS: PCP Nurse Practitioner Family; Visit Provider Internal Medicine | DX: I10 Essential (primary) hypertension (principal); E78.00 Pure hypercholesterolemia, unspecified; R06.00 Dyspnea, unspecified | CPT/HCPCS: 99213 ==